=== PATIENT | female | born 1940 | race Caucasian/White ===

== ENCOUNTER 2018-06-30 20:05 | Emergency (ER) | payer OTHER, MEDICAID ==
[~2018-06-30] VITALS: Ht 152.4 cm; Wt 59.0 kg
[2018-06-30 20:15] VITALS: BP_SYST 147
[2018-06-30] MEDS ORDERED: KETOROLAC TROMETHAMINE 60 MG/2 ML VIAL IM ONE (21:15)
[2018-07-01 00:56] VITALS: BP_SYST 141
== END 2018-07-01 00:56 | disposition home or self-care (01) ==
LOC: SED 20:05
DX: S70.01XA Contusion of right hip, initial encounter (principal); K21.9 Gastro-esophageal reflux disease without esophagitis; E11.9 Type 2 diabetes mellitus without complications; I10 Essential (primary) hypertension; Z86.79 Personal history of other diseases of the circulatory system; Z90.710 Acquired absence of both cervix and uterus; Z91.011 Allergy to milk products; V03.99XA Pedestrian with other conveyance injured in collision with car, pick-up truck or van, unspecified whether traffic or nontraffic accident, initial encounter; Y93.89 Activity, other specified; Y92.481 Parking lot as the place of occurrence of the external cause; Y99.8 Other external cause status
CPT/HCPCS: 72192; 96372; 99284; J1885

== ENCOUNTER 2019-06-01 20:06 | Inpatient (IN) | payer OTHER, MEDICAID ==
[~2019-06-01] VITALS: Ht 165.1 cm; Wt 78.9 kg
[2019-06-01 20:33] VITALS: BP_SYST 135
[2019-06-01] MEDS ORDERED: ASPIRIN 81 MG TAB.CHEW PO ONE (20:45)
--- NOTE | 2019-06-01 21:05 | NUR ---
Placed in room 4 . Placed on pan puller, blood pressure machine and pulse oximeter. To gown for exam. Side rails up. Report given to Quincy RUIZ.
--- NOTE | 2019-06-01 21:05 | NUR ---
Pt sent from [facility] r/t Tachycardia. Pt placed to gown and school bus monitor. HR 135 upon arrival to ER. 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 Pt denies c/o SOB or C/P. AAOx2 per baseline.
--- NOTE | 2019-06-01 21:10 | NUR ---
# 20 gauge angiocath placed to RAC. Use of asceptic technique. Opsite placed over site. Blood return noted. Blood for lab drawn from site. Flushed with 10 cc of normal saline. No evidence of infiltration noted. Patient tolerated well.
--- NOTE | 2019-06-01 21:11 | NUR ---
X-ray at bedside.
[2019-06-01] MEDS ORDERED: DILTIAZEM HCL 25 MG/5 ML VIAL IVP ONE (21:30)
[2019-06-01 21:34] LABS: BASOPHILS # (AUTO) 0.1 K/uL (0.0-0.2); BASOPHILS % (AUTO) 0.5 % (0.0-2.0); EOSINOPHILS # (AUTO) 0.2 K/uL (0.0-0.4); EOSINOPHILS % (AUTO) 1.4 % (0.0-4.0); HEMATOCRIT 34.3 % (36-48); HEMOGLOBIN 11.5 g/dL (12.0-16.0); LYMPHOCYTES # (AUTO) 3.8 K/uL (1.0-5.5); LYMPHOCYTES % (AUTO) 30.3 % (20.5-51.5); MEAN CORPUSCULAR HEMOGLOBIN 29 pg (27-31); MEAN CORPUSCULAR HGB CONC 34 % (32-36); MEAN CORPUSCULAR VOLUME 88 fL (79.0-98.0); MONOCYTES # (AUTO) 0.9 K/uL (0.0-1.0); MONOCYTES % (AUTO) 7.2 % (1.7-9.3); NEUTROPHILS # (AUTO) 7.7 K/uL (1.8-7.7); NEUTROPHILS % (AUTO) 60.6 % (40.0-70.0); PLATELET COUNT (AUTO) 331 K/uL (130-430); RED BLOOD CELL COUNT(AUTO) 3.92 MIL/uL (4.2-6.2); WHITE BLOOD COUNT (AUTO) 12.7 K/uL (4.8-10.8)
--- NOTE | 2019-06-01 21:39 | NUR ---
HR 113, B/P 128/76. Cardizem 20 mg given SIVP. Pt denies c/o C/P or SOB.
--- NOTE | 2019-06-01 21:44 | NUR ---
HR 70, B/P 110/88. Denies c/o C/P or SOB. Dr. Wright notified of V/S and pt status.
[2019-06-01 21:50] LABS: ANION GAP 7 (5-15); CALCIUM 8.9 mg/dL (8.4-11.0); CHLORIDE 97 mmol/L (98-107); CREATININE 0.96 mg/dL (0.55-1.30); GLUCOSE 257 mg/dL (70-99); POTASSIUM 5.3 mmol/L (3.5-5.1); SODIUM SERUM 130 mmol/L (136-145); UREA NITROGEN, BLOOD 13 mg/dL (8-21)
[2019-06-01 21:57] LABS: ALANINE AMINOTRANSFERASE 23 U/L (12-78); ALBUMIN 3.3 g/dL (3.4-4.8); ASPARTATE AMINOTRANSFERASE 16 U/L (10-37); TOTAL BILIRUBIN 0.3 mg/dL (0.0-1.0)
[2019-06-01] MEDS ORDERED: NACL 0.9% 1,000 ML IV ONE ×2 (22:00→22:45)
[2019-06-01] MEDS ORDERED: LORA10TA7 PO (22:45)
[2019-06-01] MEDS ORDERED: SSREG SUBCUT (22:45)
[2019-06-01] MEDS ORDERED: cefTRIAXone 1 GM IVPB PREMIX 50 ML IV ONE (22:45)
[2019-06-01] MEDS ORDERED: GLU850 PO (22:45)
[2019-06-01] MEDS ORDERED: GLIM2TAB2 PO (22:45)
[2019-06-01] MEDS ORDERED: DOCU250C14 PO (22:45)
[2019-06-01] MEDS ORDERED: ALBMDI INH (22:45)
[2019-06-01] MEDS ORDERED: ESOM20CA38 PO (22:45)
[2019-06-01] MEDS ORDERED: DICY10CA13 PO (22:45)
[2019-06-01] MEDS ORDERED: TOPXL100 PO (22:45)
[2019-06-01] MEDS ORDERED: INSNLG7030 SUBCUT ×2 (22:45)
[2019-06-01] MEDS ORDERED: GABA-529 PO (22:45)
[2019-06-01] MEDS ORDERED: ACET325T53 PO (22:45)
[2019-06-01] MEDS ORDERED: RIVA10TA PO (22:45)
[2019-06-01] MEDS ORDERED: AMLO5TAB4 PO (22:45)
[2019-06-01] MEDS ORDERED: CAT.1 PO (22:45)
[2019-06-01] MEDS ORDERED: PROMETHAZINE PO (22:45)
[2019-06-01] MEDS ORDERED: LISI-600 PO (22:45)
--- NOTE | 2019-06-01 22:46 | NUR ---
Medication reconciliation completed with information provided by [facility]. Any prior medication reconciliation on file was reviewed and corrected.
[2019-06-01] MEDS ORDERED: IPRATROPIUM/ALBUTEROL SULFATE 3 ML AMPUL.NEB (DUONEB) INH PRN (23:00)
--- NOTE | 2019-06-01 23:15 | NUR ---
Blood Cx X 2 and Lactic Acid drawn prior to administration of antibiotics.
--- NOTE | 2019-06-01 23:45 | NUR ---
ADMISSION NOTE Received patient from ER via gurney. Patient admitted with diagnosis of Tachycardia, Pleural Effusion. Patient is awake, alert, oriented X 2. Patient oriented to hospital room, call light, toileting, pain management and safety-teach back done. Patient informed that JOSEPH Rouse will be primary nurse and that their room number is 132c. Personal belongings checked and Belongings List documented. Call light within reach.
--- NOTE | 2019-06-01 23:50 | NUR ---
Patient will be admitted to care of Dr. Morrison. Admitted to Tele unit. Will go to room 132C. Belongings list completed. Summary report printed. Report will be given at bedside.
[2019-06-02] VITALS (9 sets, daily range): BP systolic 128–157
--- NOTE | 2019-06-02 00:50 | NUR ---
Assessment Patient assessment completed. Patient is awake, AOx2. No distress and denies pain or SOB. Pant was removed and provided with new gown. Bed is locked to lowest position, side rails up 3x and instructed on use of call light.
[2019-06-02] MEDS: PIPERACILLIN/TAZOBACTAM 2.25 GM in NS 50 ML IV SCH ×4 (00:58→17:09)
[2019-06-02] MEDS ORDERED: PIPERACILLIN/TAZOBACTAM 2.25 GM VIAL IV ONE (01:08)
--- NOTE | 2019-06-02 01:49 | NUR ---
Lab Draw Configuration Consultant at bedside for second lactic acid.
--- NOTE | 2019-06-02 03:20 | NUR ---
Heart rate increased fish roe technician reported patient's heart rate increased to 141. Patient denies chest pain or SOB. She reported that she wanted another pillow. She was positioned for comfort. Will monitor.
--- NOTE | 2019-06-02 05:36 | NUR ---
Paged and spoke to Dr. Morrison regarding heart rate in 130's - 140-s. He ordered a consult with Dr. Martin.
--- NOTE | 2019-06-02 05:53 | NUR ---
Antibiotic Due antibiotic, Zosyn IVPB, administered. Infusing and patient tolerating. Presently denies chest pain or SOB.
--- NOTE | 2019-06-02 06:10 | NUR ---
CONSULT: CONSULT CALLED FOR DR. HUNG I SPOKE WITH ANDRA DANIELS REASON FOR CONSULT: A FIB WITH [facility] REQUESTING CONSULT: BOX PERSON PHONE NUMBER: [phone]
--- NOTE | 2019-06-02 06:57 | NUR ---
Closing Note Patient is resting with eyes closed. No distress and nonlabored breathing on room air. Safety precautions maintained. Will endorse care to day shift nurse.
--- NOTE | 2019-06-02 08:00 | NUR ---
Note Pt assisted to sit up in bed to eat breakfast. No SOB/resp distress or pain/discomfort noted at this time. Tele unit attached and intact at this time. IV in right AC intact and patent. No needs noted at this time. Call light within reach.
--- NOTE | 2019-06-02 08:50 | NUR ---
Note Dr Morrison on the floor to assess pt at this time. Requested MD to reconcile medications and informed MD of pt's high pressure.
--- NOTE | 2019-06-02 09:15 | NUR ---
Note Dr Thrasher on the floor to assess pt and orders written and carried out at this time.
[2019-06-02] MEDS ORDERED: LORATADINE 10 MG TABLET PO PRN (09:30)
[2019-06-02] MEDS ORDERED: cloNIDine HCL 0.1 MG TABLET PO SCH (09:30)
[2019-06-02] MEDS ORDERED: RIVAROXABAN 10 MG TABLET PO SCH (09:30)
[2019-06-02] MEDS ORDERED: ACETAMINOPHEN 325 MG TABLET PO PRN (09:30)
[2019-06-02] MEDS ORDERED: DEXTROSE 50% JECT 50 ML DISP.SYRIN IVP PRN (09:30)
[2019-06-02] MEDS ORDERED: amLODIPine BESYLATE 5 MG TABLET PO ONE (09:45)
--- NOTE | 2019-06-02 09:45 | NUR ---
Note Pt already ate breakfast. Addendum: 06/02/19 at 1107 by Jami Christensen RN Blood sugar will be taken at noon.
[2019-06-02] MEDS ORDERED: DILTIAZEM HCL 25 MG/5 ML VIAL IVP PRN (10:00)
[2019-06-02] MEDS ORDERED: cloNIDine HCL 0.1 MG TABLET PO PRN (10:15)
[2019-06-02] MEDS ORDERED: LISINOPRIL 20 MG TABLET PO ONE (10:15)
--- NOTE | 2019-06-02 10:17 | NUR ---
Nutrition Update Tyler Scale 17 noted. Pt admitted for tachycardia, pleural effusion. Diet: CCHO, cardiac BMI: 29.5 kg/m2 RD to follow per nutrition care standards.
--- NOTE | 2019-06-02 10:20 | NUR ---
Note Pt having 2D-echo done at bedside.
[2019-06-02] MEDS ORDERED: RIVAROXABAN 10 MG TABLET PO ONE (10:45)
[2019-06-02] MEDS ORDERED: METO100T14 PO (10:53)
--- NOTE | 2019-06-02 11:10 | NUR ---
Note Pt resting in bed. Denies any needs at this time. Pt next to nurses' station for close observation for needs and care all shift. Call light within reach.
[2019-06-02] MEDS ORDERED: METOPROLOL TARTRATE 50 MG TABLET PO ONE (11:15)
[2019-06-02] MEDS: INSULIN REGULAR, HUMAN 100 UNITS/ML, 10 ML VIAL (humuLIN R) SUBCUT PRN ×2 (11:49→17:19)
--- NOTE | 2019-06-02 13:50 | NUR ---
Note Pt's heart rate is 94-96 at this time. Xarelto 20mg was given at 1126am.
--- NOTE | 2019-06-02 14:55 | NUR ---
Note Pt resting in bed talking to her daughter on the cellphone at this time. Pt denies any needs at this time. Call light within reach and pt next to nurses' station for close observation at this time.
[2019-06-02] MEDS: GABAPENTIN 100 MG CAPSULE PO SCH ×2 (16:01→20:44)
[2019-06-02] MEDS: GLIMEPIRIDE 2 MG TABLET PO SCH (16:01)
--- NOTE | 2019-06-02 18:25 | NUR ---
Note Pt was checked on q1' and PRN all shift for needs and care. Pt next to nurses' station for close observation. No SOB/resp distress or pain/discomfort noted at this time. IV in right AC intact and patent. Tele unit attached and intact all shift. No needs noted at this time. Pt sitting up in bed eating her dinner. Call light within reach.
--- NOTE | 2019-06-02 19:31 | NUR ---
Initial Notes Received handoff report from offgoing nurse. Patient is awake and alert, resting comfortably in bed. No SOB, no acute distress, no complaints of pain at this time. IV site is intact, dressing clean and dry, saline locked. Bed is locked, in the lowest position, 2x side rails up, bed alarm is on. Call light is within reach. Will continue with plan of care.
[2019-06-02] MEDS: DOCUSATE SODIUM 250 MG CAPSULE PO SCH (20:44)
[2019-06-02] MEDS: LISINOPRIL 20 MG TABLET PO SCH (20:44)
[2019-06-02] MEDS: METOPROLOL TARTRATE 50 MG TABLET PO SCH (20:45)
--- NOTE | 2019-06-02 21:00 | NUR ---
Patient is awake and alert, resting comfortably in bed. No SOB, no acute distress, no complaints of pain. Bed is locked, in the lowest position, 2x side rails up, bed alarm is on. Call light is within reach. Encouraged to call.
--- NOTE | 2019-06-02 23:00 | NUR ---
Patient states that she is cold. Provided patient with warm blankets per patient request. Encouraged patient to call for assistance.
[2019-06-03] MEDS: PIPERACILLIN/TAZOBACTAM 2.25 GM in NS 50 ML IV SCH ×4 (00:41→17:48)
[2019-06-03] MEDS: INSULIN REGULAR, HUMAN 100 UNITS/ML, 10 ML VIAL (humuLIN R) SUBCUT PRN ×4 (00:44→16:32)
[2019-06-03 00:45] VITALS: BP_SYST 155
--- NOTE | 2019-06-03 01:01 | NUR ---
Patient resting comfortably in bed, eyes closed. Breathing even and unlabored with visible chest rise and fall noted. Easily arousable to touch. NO SOB, no acute distress, no complaints of pain at this time. IV site intact, dressing clean and dry, currently infusing iv antibiotics per MD order, see eMAR. Bed is locked, in the lowest position, 2x side rails up, bed alarm is on. Call light is within reach. Encouraged patient to call for assistance.
--- NOTE | 2019-06-03 03:00 | NUR ---
Patient resting comfortably in bed, eyes closed. Breathing even and unlabored with visible chest rise and fall noted. NO SOB, no acute distress, no signs of pain or facial grimacing noted. IV site intact, dressing clean and dry, saline locked. Bed is locked, in the lowest position, 2x side rails up, bed alarm is on. call light is within reach.
[2019-06-03 06:17] LABS: ALANINE AMINOTRANSFERASE 15 U/L (12-78); ANION GAP 9 (5-15); ASPARTATE AMINOTRANSFERASE 14 U/L (10-37); CALCIUM 8.7 mg/dL (8.4-11.0); CHLORIDE 102 mmol/L (98-107); CREATININE 0.84 mg/dL (0.55-1.30); GLUCOSE 186 mg/dL (70-99); POTASSIUM 4.5 mmol/L (3.5-5.1); SODIUM SERUM 136 mmol/L (136-145); TOTAL BILIRUBIN 0.2 mg/dL (0.0-1.0); UREA NITROGEN, BLOOD 15 mg/dL (8-21)
[2019-06-03] MEDS: GLIMEPIRIDE 2 MG TABLET PO SCH ×2 (06:28→16:05)
[2019-06-03 07:15] LABS: BASOPHILS # (AUTO) 0.1 K/uL (0.0-0.2); BASOPHILS % (AUTO) 0.7 % (0.0-2.0); EOSINOPHILS # (AUTO) 0.2 K/uL (0.0-0.4); EOSINOPHILS % (AUTO) 1.5 % (0.0-4.0); HEMATOCRIT 37.2 % (36-48); HEMOGLOBIN 12.2 g/dL (12.0-16.0); LYMPHOCYTES # (AUTO) 3.4 K/uL (1.0-5.5); LYMPHOCYTES % (AUTO) 32.6 % (20.5-51.5); MEAN CORPUSCULAR HEMOGLOBIN 29 pg (27-31); MEAN CORPUSCULAR HGB CONC 33 % (32-36); MEAN CORPUSCULAR VOLUME 88 fL (79.0-98.0); MONOCYTES # (AUTO) 0.9 K/uL (0.0-1.0); MONOCYTES % (AUTO) 8.3 % (1.7-9.3); NEUTROPHILS % (AUTO) 56.9 % (40.0-70.0); PLATELET COUNT (AUTO) 315 K/uL (130-430); RED BLOOD CELL COUNT(AUTO) 4.21 MIL/uL (4.2-6.2); WHITE BLOOD COUNT (AUTO) 10.5 K/uL (4.8-10.8)
--- NOTE | 2019-06-03 07:34 | NUR ---
Closing Notes Handoff report given to oncoming dayshift nurse at the bedside. Patient resting comfortably in bed with eyes closed. No SOB, no acute distress, no complaints of pain at this time. Bed is locked, in the lowest position, 2x side rails up, bed alarm is on. Call light within reach. Fall and safety precautions maintained. All needs have been met during this shift.
[2019-06-03 08:00] VITALS: BP_SYST 160
--- NOTE | 2019-06-03 08:00 | NUR ---
Note Pt assisted in sitting up in bed to eat breakfast. No SOB/resp distress or pain/discomfort noted at this time. IV in right AC intact and patent at this time. Tele unit attached and intact at this time. No needs noted at this time. Call light within reach.
--- NOTE | 2019-06-03 08:05 | NUR ---
Note Dr Thrasher on the floor doing assessment and checking labs/tests drawn previously.
[2019-06-03] MEDS: DOCUSATE SODIUM 250 MG CAPSULE PO SCH ×2 (08:50→21:20)
[2019-06-03] MEDS: LISINOPRIL 20 MG TABLET PO SCH ×2 (08:51→21:21)
[2019-06-03] MEDS: GABAPENTIN 100 MG CAPSULE PO SCH ×3 (08:52→21:21)
[2019-06-03] MEDS: RIVAROXABAN 20 MG TABLET PO SCH (08:52)
[2019-06-03] MEDS: amLODIPine BESYLATE 5 MG TABLET PO SCH (08:53)
[2019-06-03] MEDS: METOPROLOL TARTRATE 50 MG TABLET PO SCH ×2 (08:53→21:22)
[2019-06-03 11:24] VITALS: BP_SYST 130
--- NOTE | 2019-06-03 12:00 | NUR ---
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 No new orders given at this time.
--- NOTE | 2019-06-03 12:00 | NUR ---
Note Pt was moved from room 132C to room 122A for contact isolation precautions. No needs noted at this time. Call light within reach. Pt next to nurses' station for close observation for needs and care. Call light within reach.
[2019-06-03 15:15] VITALS: BP_SYST 128
--- NOTE | 2019-06-03 15:15 | NUR ---
Note Pt resting in bed watching television - denies any needs at this time. Pt next to nurses' station for close observation for needs and care. Call light within reach.
--- NOTE | 2019-06-03 18:45 | NUR ---
Note Pt assisted in sitting up in bed to eat her dinner. No SOB/resp distress or pain/discomfort noted at this time. Pt's tele unit attached and intact all shift. Pt was checked on q1' and PRN all shift for needs and care. IV in right AC intact and patent at this time. Call light within reach.
--- NOTE | 2019-06-03 19:30 | NUR ---
Initial Notes Received handoff report from off going nurse at the bedside. Patient is awake and alert, resting comfortably in bed. NO SOB, no acute distress, no complaints of pain at this time. IV site intact, dressing clean and dry, saline locked. Bed is locked, in the lowest position, 2x side rails up, bed alarm is on. Call light is within reach. Encouraged patient to call for assistance. Will continue with plan of care. Addendum: 06/04/19 at 0134 by Carine Ospina RN Continuation of Notes Noted patient is now on contact isolation precautions for positive MRSA.
[2019-06-03 20:00] VITALS: BP_SYST 130
[2019-06-03] MEDS: DILTIAZEM HCL 25 MG/5 ML VIAL IVP PRN (21:42)
[2019-06-03 21:50] VITALS: BP_SYST 113
--- NOTE | 2019-06-03 21:50 | NUR ---
Noted patient with HR 140s, uncontrolled AFIB. Cardizem given at 2142 per MD order for elevated HR, see eMAR. Vital signs retaken at 2150. BP 113/72, HR 71. Stable. Will continue to monitor closely.
--- NOTE | 2019-06-04 00:10 | NUR ---
Endorsement of Care Handoff report given to CARMELO at the bedside. Patient is resting comfortably in bed with eyes closed. Breathing even and unlabored with visible chest rise and fall noted at this time. Bed is locked, in the lowest position, 2x side rails up, bed alarm is on. Call light is within reach. All needs have been met at this time. Addendum: 06/04/19 at 6642 by Carine Ospina RN Continuation of Notes Also endorsed to follow up with influenza vaccination status by calling the daughter Pearl at [phone], or from [facility].
[2019-06-04] MEDS: PIPERACILLIN/TAZOBACTAM 2.25 GM in NS 50 ML IV SCH ×4 (00:11→17:33)
--- NOTE | 2019-06-04 00:15 | NUR ---
NOTES RECEIVED PATIENT RESTING COMFORTABLY IN BED, VITALS STABLE, NO PAIN AND DISCOMFORT NOTED AT THIS TIME. NEEDS ATTENDED TO. WILL CONTINUE TO MONITOR.
[2019-06-04] MEDS: INSULIN REGULAR, HUMAN 100 UNITS/ML, 10 ML VIAL (humuLIN R) SUBCUT PRN ×3 (00:18→11:37)
[2019-06-04 01:10] VITALS: BP_SYST 110
--- NOTE | 2019-06-04 02:14 | NUR ---
ROUNDS PATIENT ASLEEP, RESPIRATIONS EVEN AND UNLABORED, WILL CONTINUE TO MONITOR.
--- NOTE | 2019-06-04 04:13 | NUR ---
ROUNDS PATIENT ASLEEP, RESPIRATIONS EVEN AND UNLABORED, WILL CONTINUE TO MONITOR.
[2019-06-04] MEDS: GLIMEPIRIDE 2 MG TABLET PO SCH ×2 (06:16→17:36)
--- NOTE | 2019-06-04 06:37 | NUR ---
CLOSING NOTES PATIENT AWAKE, VITALS STABLE, NO PAIN AT THIS TIME. ACCU CHECK DONE, BLOOD SUGAR 173 WITH 2 UNITS REGULAR INSULIN GIVEN SUBCU FOR COVERAGE. ALL NEEDS ATTENDED TO. CALL LIGHT PLACED WITHIN REACH.
--- NOTE | 2019-06-04 08:00 | NUR ---
ASSUMPTION OF CARE: RECEIVED PT A/A/OX3, DX: DECREASED CARDIAC OUTPUT, R/T TACHYCARDIA, PLEURAL EFFUSION, VS WNL, NO S/S OF DISTRESS, NO C/O PAIN, BREATH SOUNDS ARE CLEAR, BREATHING UNLABORED, IV SITE INTACT, PATENT, NO REDNESS OR SWELLING, PULSES PALPABLE, ORIENTED TO UNIT, CALL LIGHT PLACED WITHIN REACH, WILL CONT' TO MONITOR AND ASSESS.
[2019-06-04 08:26] VITALS: BP_SYST 139
[2019-06-04] MEDS: GABAPENTIN 100 MG CAPSULE PO SCH ×3 (08:38→20:40)
[2019-06-04] MEDS: amLODIPine BESYLATE 5 MG TABLET PO SCH (08:40)
[2019-06-04] MEDS: METOPROLOL TARTRATE 50 MG TABLET PO SCH ×2 (08:40→20:40)
[2019-06-04] MEDS: LISINOPRIL 20 MG TABLET PO SCH ×2 (08:41→20:40)
[2019-06-04] MEDS: DOCUSATE SODIUM 250 MG CAPSULE PO SCH ×2 (08:42→20:40)
[2019-06-04] MEDS: RIVAROXABAN 20 MG TABLET PO SCH (08:49)
--- NOTE | 2019-06-04 09:00 | NUR ---
TOOL TENDER: MORNING MEDS GIVEN, PER ORDERED BY Duglas, TOLERATED WELL, WILL CONT' WITH POC.
--- NOTE | 2019-06-04 11:30 | NUR ---
GLUCOSE MONITORING: BLOOD SUGAR [id number], COVERED WITH 2 UNITS REGULAR INSULIN, GIVEN SQ, TOLERATED WELL, PT EATING WELL, WILL CONT' TO MONITOR, WILL CONT' WITH POC.
[2019-06-04 12:23] VITALS: BP_SYST 150
--- NOTE | 2019-06-04 15:00 | NUR ---
NURSES NOTES: PT REMAINS STABLE, NO S/S OF DISTRESS, SR-ST ON TELEMONITOR, LOW 100'S, ASYMPTOMATIC, NO C/O PAIN, CALLLIGHT PLACED WITHIN REACH, WILL CONT' TO MONITOR AND ASSESS.
[2019-06-04 16:34] VITALS: BP_SYST 141
--- NOTE | 2019-06-04 17:30 | NUR ---
GLUCOSE MONITORING: BLOOD SUGAR [id number], COVERED WITH 2 UNITS REGULAR INSULIN, GIVEN SQ, TOLERATED WELL, WILL CONT' TO MONITOR, WILL CONT' WITH POC.
[2019-06-04] MEDS: DILTIAZEM HCL 25 MG/5 ML VIAL IVP PRN (18:05)
--- NOTE | 2019-06-04 18:05 | NUR ---
TACHYCARDIA: PT HAS A-FIB UNCONTROLLED, 150'S SUSTAINED, CARDIZEM IVP GIVEN, TOLERATED WELL, WILL CONT' TO MONITOR, WILL CONT' WITH POC.
--- NOTE | 2019-06-04 19:25 | NUR ---
initial notes: pt is awake, alert, oriented x 3.on bed. no pain. stable. not distress. ivf running to right ac gauge 22- intact and patent. no sign of infiltration. pt is incontinent of urine, clean by power barker operator. contact isolation for mrsa of nares. discuss to pt plan of care, encourage to use call for assistance, call light is with the pt. pt verbalized understanding. needs attended. safety on.side rails up. low bed position.bed alarm, maintained isolation. will follow-up.
[2019-06-04 20:34] VITALS: BP_SYST 122
--- NOTE | 2019-06-04 22:00 | NUR ---
sleeping on her stable, no sob. call light in reach. will monitor.
--- NOTE | 2019-06-05 | NUR ---
sleeping, stable, no pain, no sob. maintained on isolation. safety will monitor.
[2019-06-05] MEDS: PIPERACILLIN/TAZOBACTAM 2.25 GM in NS 50 ML IV SCH ×2 (00:38→06:40)
[2019-06-05] MEDS: INSULIN REGULAR, HUMAN 100 UNITS/ML, 10 ML VIAL (humuLIN R) SUBCUT PRN ×2 (00:42→06:44)
[2019-06-05 01:24] VITALS: BP_SYST 130
--- NOTE | 2019-06-05 02:00 | NUR ---
resting, comfortable. no distress, no breathing problem. stable. call light in reach. will monitor.
--- NOTE | 2019-06-05 04:23 | NUR ---
sleeping on her side, comfortable. no pain, non labored breathing. stable. contact isolation. call light in reach, bed alarm on. will monitor.
--- NOTE | 2019-06-05 06:00 | NUR ---
resting, comfortable. no distress, no breathing problem. stable. iv lock intact. call light in reach. will monitor.
[2019-06-05] MEDS: GLIMEPIRIDE 2 MG TABLET PO SCH (06:42)
--- NOTE | 2019-06-05 07:28 | NUR ---
closing: pt is awake, alert, oriented. no pain, no distress, iv lock intact and patent. needs attended the whole shift. bedside report given to am rn.
[2019-06-05 08:00] VITALS: BP_SYST 127
[2019-06-05] MEDS: DOCUSATE SODIUM 250 MG CAPSULE PO SCH (08:39)
[2019-06-05] MEDS: METOPROLOL TARTRATE 50 MG TABLET PO SCH (08:40)
[2019-06-05] MEDS: LISINOPRIL 20 MG TABLET PO SCH (08:41)
[2019-06-05] MEDS: amLODIPine BESYLATE 5 MG TABLET PO SCH (08:41)
[2019-06-05] MEDS: GABAPENTIN 100 MG CAPSULE PO SCH (08:41)
[2019-06-05] MEDS: RIVAROXABAN 20 MG TABLET PO SCH (08:49)
[2019-06-05 11:43] VITALS: BP_SYST 127
[2019-06-05 12:00] VITALS: BP_SYST 133
--- NOTE | 2019-06-05 12:20 | NUR ---
pt xiomaralock dc'd, monitor removed, discharge instructions given to patient and van to [facility] arrived to picking machine operator helper pt and return her to home at facility. pt left per w/c , alert and oriented x 3 with no distress noted instructions given to pt and signature obtained. , with no acute distress noted.
--- NOTE | 2019-06-16 15:50 | NUR ---
DISCHARGE FOLLOW UP PHONE CALL CM/ CHRISTOPH YOON PHONED PATIENT, . WAS UNABLE TO REACH PATIENT. LEFT MESSAGE WITH FLAT GRINDER OPERATOR. 1ST ATTEMPT MADE.
== END 2019-06-05 12:20 | disposition home or self-care (01) | DRG 308 ==
LOC: SED 20:06 → STU 23:00
PROVIDERS: ADMIT Internal Medicine Hospice and Palliative Medicine; ATTEND Internal Medicine Hospice and Palliative Medicine
DX: I48.91 Unspecified atrial fibrillation (principal); J18.9 Pneumonia, unspecified organism; E44.1 Mild protein-calorie malnutrition; E11.9 Type 2 diabetes mellitus without complications; E66.9 Obesity, unspecified; I10 Essential (primary) hypertension; Z79.4 Long term (current) use of insulin; Z68.29 Body mass index [BMI] 29.0-29.9, adult; Z79.899 Other long term (current) drug therapy; Z88.8 Allergy status to other drugs, medicaments and biological substances
CPT/HCPCS: 36415; 71045; 80053; 82550-TC; 82962; 83605; 83880; 84484; 85025; 87040-TC; 87081; 93005; 93306; 96361; 96365; 99285; G0378; J0696; J2543; J3490; J7030

== ENCOUNTER 2021-04-08 13:41 | Inpatient (IN) | payer OTHER, MEDICAID, SELFPAY ==
[~2021-04-08] VITALS: Ht 154.9 cm; Wt 61.4 kg
[~2021-04-08 13:41] MED LIST: ACET325T53 PO; ALBMDI INH; AMLO5TAB4 PO; DICY10CA13 PO; DOCU250C14 PO; ESOM20CA38 PO; GABA-529 PO; GLIM2TAB PO; GLU850 PO; INSNLG7030 SUBCUT; LISI20TA30 PO; LORA10TA7 PO; METO100T14 PO; PROMETHAZINE PO; RIVA10TA PO; SSREG SUBCUT
[2021-04-08 13:50] VITALS: BP_SYST 144
[2021-04-08 15:48] LABS: BASOPHILS % (AUTO) 0.3 % (0.0-2.0); EOSINOPHILS % (AUTO) 0.4 % (0.0-4.0); HEMATOCRIT 36.6 % (36-48); HEMOGLOBIN 12.8 g/dL (12.0-16.0); LYMPHOCYTES # (AUTO) 2.1 K/uL (1.0-5.5); LYMPHOCYTES % (AUTO) 16.5 % (20.5-51.5); MEAN CORPUSCULAR HEMOGLOBIN 28 pg (27-31); MEAN CORPUSCULAR HGB CONC 35 % (32-36); MEAN CORPUSCULAR VOLUME 81 fL (79.0-98.0); MONOCYTES # (AUTO) 0.6 K/uL (0.0-1.0); NEUTROPHILS % (AUTO) 77.8 % (40.0-70.0); PLATELET COUNT (AUTO) 323 K/uL (130-430); RED CELL DISTRIBUTION WIDTH 15.2 % (9.0-15.0); WHITE BLOOD COUNT (AUTO) 12.9 K/uL (4.8-10.8)
[2021-04-08 15:52] LABS: BILIRUBIN,URINE NEGATIVE (NEGATIVE); CLARITY/URINE SL CLOUDY (CLEAR); COLOR,URINE YELLOW (YELLOW); GLUCOSE,URINE 3+ (NEGATIVE); KETONES,URINE NEGATIVE (NEGATIVE); LEUKOCYTE ESTERASE ,URINE TRACE (NEGATIVE); NITRITE, URINE NEGATIVE (NEGATIVE); PH,URINE 5.5 (5.0-8.0); PROTEIN URINE 2+ (NEGATIVE); UROBILINOGEN,URINE 0.2 (0.2-1.0)
[2021-04-08 16:00] LABS: BLOOD, URINE TRACE (NEGATIVE)
[2021-04-08 16:00] LABS: ANION GAP 10 (5-15); CREATININE 0.71 mg/dL (0.55-1.30); GLUCOSE 232 mg/dL (70-99); POTASSIUM 4.3 mmol/L (3.5-5.1); UREA NITROGEN, BLOOD 8 mg/dL (8-21)
[2021-04-08 16:02] LABS: BACTERIA,URINE MANY /HPF (None Seen); RBC,URINE 0-3 /HPF (0-3)
[2021-04-08 16:14] LABS: ALANINE AMINOTRANSFERASE 25 U/L (12-78); ALBUMIN 3.8 g/dL (3.4-4.8); ASPARTATE AMINOTRANSFERASE 14 U/L (10-37); LIPASE 91 U/L (73-393); TOTAL BILIRUBIN 0.4 mg/dL (0.0-1.0)
[2021-04-08 16:16] LABS: SODIUM SERUM 116 mmol/L (136-145)
[2021-04-08 16:17] LABS: CHLORIDE 79 mmol/L (98-107)
[2021-04-08] MEDS ORDERED: ONDANSETRON HCL 4 MG/2 ML VIAL IVP ONE (16:45)
[2021-04-08] MEDS ORDERED: NACL 0.9% 1,000 ML IV ONE (16:45)
[2021-04-08] MEDS ORDERED: cefTRIAXone 1 GM IVPB PREMIX 50 ML IV ONE (17:00)
[2021-04-08] MEDS: D5NS 1,000 ML IV SCH (18:53)
[2021-04-08] MEDS ORDERED: DIGO125T PO (19:12)
[2021-04-08 21:45] VITALS: BP_SYST 125
[2021-04-08] MEDS ORDERED: LORATADINE 10 MG TABLET PO PRN (22:00)
[2021-04-08] MEDS ORDERED: NALOXONE HCL 0.4 MG/ML AMP (NARCAN) IVP PRN ×2 (22:00)
[2021-04-08] MEDS ORDERED: HYDROcodone/ACETAMIN 5-325 MG TAB (NORCO/ VICODIN) PO PRN (22:00)
[2021-04-08] MEDS ORDERED: ACETAMINOPHEN 325 MG TABLET PO SCH (22:00)
[2021-04-08] MEDS ORDERED: LORazepam 2 MG/ML VIAL IVP PRN (22:00)
[2021-04-08] MEDS ORDERED: HYDROcodone/ACETAMIN 10-325 MG TAB PO PRN (22:00)
[2021-04-08] MEDS ORDERED: ACETAMINOPHEN 325 MG TABLET PO PRN (22:00)
[2021-04-08] MEDS ORDERED: ONDANSETRON HCL 4 MG/2 ML VIAL IVP PRN (22:00)
[2021-04-08 22:24] VITALS: BP_SYST 125
[2021-04-09 00:25] VITALS: BP_SYST 118
[2021-04-09] MEDS: D5NS 1,000 ML IV SCH ×2 (03:14→13:15)
[2021-04-09] MEDS: INSULIN REGULAR, HUMAN 100 UNITS/ML, 10 ML VIAL (humuLIN R) SUBCUT PRN ×4 (06:04→21:26)
[2021-04-09 06:43] LABS: BASOPHILS % (AUTO) 0.3 % (0.0-2.0); EOSINOPHILS # (AUTO) 0.1 K/uL (0.0-0.4); EOSINOPHILS % (AUTO) 0.7 % (0.0-4.0); HEMATOCRIT 31.1 % (36-48); LYMPHOCYTES # (AUTO) 2.4 K/uL (1.0-5.5); LYMPHOCYTES % (AUTO) 23.3 % (20.5-51.5); MEAN CORPUSCULAR HEMOGLOBIN 29 pg (27-31); MEAN CORPUSCULAR HGB CONC 35 % (32-36); MEAN CORPUSCULAR VOLUME 82 fL (79.0-98.0); MONOCYTES # (AUTO) 0.9 K/uL (0.0-1.0); MONOCYTES % (AUTO) 8.7 % (1.7-9.3); NEUTROPHILS # (AUTO) 6.9 K/uL (1.8-7.7); PLATELET COUNT (AUTO) 252 K/uL (130-430); RED BLOOD CELL COUNT(AUTO) 3.81 MIL/uL (4.2-6.2); RED CELL DISTRIBUTION WIDTH 15.2 % (9.0-15.0); WHITE BLOOD COUNT (AUTO) 10.3 K/uL (4.8-10.8)
[2021-04-09 07:05] LABS: ANION GAP 8 (5-15); CALCIUM 8.2 mg/dL (8.4-11.0); CHLORIDE 92 mmol/L (98-107); CREATININE 0.61 mg/dL (0.55-1.30); GLUCOSE 206 mg/dL (70-99); POTASSIUM 3.8 mmol/L (3.5-5.1); SODIUM SERUM 125 mmol/L (136-145); UREA NITROGEN, BLOOD 8 mg/dL (8-21)
[2021-04-09] MEDS ORDERED: ALBUTEROL SULFATE 0.083% 2.5 MG/3 ML VIAL.NEB INH PRN (07:30)
[2021-04-09] MEDS: PROMETHAZINE HCL 6.25 MG/5 ML UDC PO SCH ×3 (09:13→21:21)
[2021-04-09] MEDS: DOCUSATE SODIUM 250 MG CAPSULE PO SCH ×2 (09:14→21:19)
[2021-04-09] MEDS: DICYCLOMINE HCL 10 MG CAPSULE PO SCH ×3 (09:14→21:19)
[2021-04-09] MEDS: DIGOXIN 0.125 MG TABLET PO SCH (09:14)
[2021-04-09] MEDS: lisinopriL 20 MG TABLET PO SCH ×2 (09:14→21:19)
[2021-04-09] MEDS: GLIMEPIRIDE 2 MG TABLET PO SCH ×2 (09:14→21:20)
[2021-04-09] MEDS: PANTOPRAZOLE SODIUM 40 MG TAB PO SCH (09:14)
[2021-04-09] MEDS: amLODIPine BESYLATE 5 MG TABLET PO SCH (09:15)
[2021-04-09] MEDS: METOPROLOL TARTRATE 50 MG TABLET PO SCH ×2 (09:15→21:19)
[2021-04-09] MEDS: GABAPENTIN 100 MG CAPSULE PO SCH ×3 (09:16→21:19)
[2021-04-09] MEDS: INSULIN NPH/REGULAR 70-30, 100 UNITS/ML, 10 ML VIAL SUBCUT SCH ×2 (09:20→17:51)
[2021-04-09 12:44] VITALS: BP_SYST 118
[2021-04-09 16:32] VITALS: BP_SYST 114
[2021-04-09] MEDS: cefTRIAXone 1 GM IVPB PREMIX 50 ML IV SCH (17:47)
[2021-04-09] MEDS: RIVAROXABAN 10 MG TABLET PO SCH (17:50)
[2021-04-09 20:14] VITALS: BP_SYST 114
[2021-04-10] VITALS: BP_SYST 121
[2021-04-10] MEDS: D5NS 1,000 ML IV SCH ×3 (00:26→12:11)
[2021-04-10] MEDS: INSULIN REGULAR, HUMAN 100 UNITS/ML, 10 ML VIAL (humuLIN R) SUBCUT PRN ×4 (06:15→23:58)
[2021-04-10 06:59] LABS: BASOPHILS # (AUTO) 0.1 K/uL (0.0-0.2); BASOPHILS % (AUTO) 0.7 % (0.0-2.0); EOSINOPHILS # (AUTO) 0.1 K/uL (0.0-0.4); HEMATOCRIT 32.2 % (36-48); LYMPHOCYTES # (AUTO) 2.3 K/uL (1.0-5.5); LYMPHOCYTES % (AUTO) 27.8 % (20.5-51.5); MEAN CORPUSCULAR HEMOGLOBIN 29 pg (27-31); MEAN CORPUSCULAR HGB CONC 34 % (32-36); MEAN CORPUSCULAR VOLUME 84 fL (79.0-98.0); MONOCYTES # (AUTO) 0.7 K/uL (0.0-1.0); MONOCYTES % (AUTO) 7.9 % (1.7-9.3); NEUTROPHILS # (AUTO) 5.3 K/uL (1.8-7.7); NEUTROPHILS % (AUTO) 62.6 % (40.0-70.0); PLATELET COUNT (AUTO) 244 K/uL (130-430); RED BLOOD CELL COUNT(AUTO) 3.86 MIL/uL (4.2-6.2); RED CELL DISTRIBUTION WIDTH 15.4 % (9.0-15.0); WHITE BLOOD COUNT (AUTO) 8.4 K/uL (4.8-10.8)
[2021-04-10 08:00] VITALS: BP_SYST 133
[2021-04-10 08:10] LABS: ALANINE AMINOTRANSFERASE 17 U/L (12-78); ALBUMIN 2.4 g/dL (3.4-4.8); ANION GAP 10 (5-15); ASPARTATE AMINOTRANSFERASE 11 U/L (10-37); C-REACTIVE PROTEIN QUANT 1.3 mg/dL (0-0.5); CHLORIDE 100 mmol/L (98-107); CREATININE 0.66 mg/dL (0.55-1.30); GLUCOSE 225 mg/dL (70-99); PHOSPHORUS 2.3 mg/dL (2.7-4.5); SODIUM SERUM 132 mmol/L (136-145); TOTAL BILIRUBIN 0.2 mg/dL (0.0-1.0); UREA NITROGEN, BLOOD 11 mg/dL (8-21)
[2021-04-10] MEDS: GABAPENTIN 100 MG CAPSULE PO SCH ×3 (08:50→23:42)
[2021-04-10] MEDS: METOPROLOL TARTRATE 50 MG TABLET PO SCH ×2 (08:51→23:48)
[2021-04-10] MEDS: DICYCLOMINE HCL 10 MG CAPSULE PO SCH ×3 (08:51→23:42)
[2021-04-10] MEDS: DOCUSATE SODIUM 250 MG CAPSULE PO SCH ×2 (08:52→23:42)
[2021-04-10] MEDS: DIGOXIN 0.125 MG TABLET PO SCH (08:52)
[2021-04-10] MEDS: PANTOPRAZOLE SODIUM 40 MG TAB PO SCH (08:52)
[2021-04-10] MEDS: lisinopriL 20 MG TABLET PO SCH ×2 (08:52→23:48)
[2021-04-10] MEDS: GLIMEPIRIDE 2 MG TABLET PO SCH (08:53)
[2021-04-10] MEDS: amLODIPine BESYLATE 5 MG TABLET PO SCH (08:53)
[2021-04-10] MEDS: PROMETHAZINE HCL 6.25 MG/5 ML UDC PO SCH ×3 (08:54→23:43)
[2021-04-10] MEDS: INSULIN NPH/REGULAR 70-30, 100 UNITS/ML, 10 ML VIAL SUBCUT SCH ×2 (08:58→18:06)
[2021-04-10 10:02] LABS: ERYTHROCYTE SEDIMENTATION RATE 17 MM/HR (0-20)
[2021-04-10 12:07] VITALS: BP_SYST 151
[2021-04-10 16:04] VITALS: BP_SYST 130
[2021-04-10] MEDS ORDERED: NA PHOS 15 MM in NS 250 ML IV ONE (17:45)
[2021-04-10] MEDS: RIVAROXABAN 10 MG TABLET PO SCH (18:04)
[2021-04-10] MEDS: cefTRIAXone 1 GM IVPB PREMIX 50 ML IV SCH (18:08)
[2021-04-10 20:00] VITALS: BP_SYST 184
[2021-04-11] MEDS: GLIMEPIRIDE 2 MG TABLET PO SCH ×3 (00:01→21:38)
[2021-04-11 01:25] VITALS: BP_SYST 150
[2021-04-11] MEDS: D5NS 1,000 ML IV SCH ×2 (04:34→14:12)
[2021-04-11] MEDS: INSULIN REGULAR, HUMAN 100 UNITS/ML, 10 ML VIAL (humuLIN R) SUBCUT PRN ×3 (06:00→22:17)
[2021-04-11 06:53] LABS: BASOPHILS # (AUTO) 0.1 K/uL (0.0-0.2); BASOPHILS % (AUTO) 0.7 % (0.0-2.0); EOSINOPHILS # (AUTO) 0.2 K/uL (0.0-0.4); EOSINOPHILS % (AUTO) 2.1 % (0.0-4.0); HEMATOCRIT 32.9 % (36-48); HEMOGLOBIN 11.2 g/dL (12.0-16.0); LYMPHOCYTES % (AUTO) 28.8 % (20.5-51.5); MEAN CORPUSCULAR HEMOGLOBIN 29 pg (27-31); MEAN CORPUSCULAR HGB CONC 34 % (32-36); MEAN CORPUSCULAR VOLUME 84 fL (79.0-98.0); MONOCYTES # (AUTO) 0.8 K/uL (0.0-1.0); MONOCYTES % (AUTO) 7.9 % (1.7-9.3); NEUTROPHILS # (AUTO) 6.4 K/uL (1.8-7.7); NEUTROPHILS % (AUTO) 60.5 % (40.0-70.0); PLATELET COUNT (AUTO) 261 K/uL (130-430); RED CELL DISTRIBUTION WIDTH 15.5 % (9.0-15.0); WHITE BLOOD COUNT (AUTO) 10.5 K/uL (4.8-10.8)
[2021-04-11 07:52] LABS: ANION GAP 10 (5-15); C-REACTIVE PROTEIN QUANT 0.9 mg/dL (0-0.5); CALCIUM 8.5 mg/dL (8.4-11.0); CHLORIDE 101 mmol/L (98-107); CREATININE 0.65 mg/dL (0.55-1.30); GLUCOSE 169 mg/dL (70-99); POTASSIUM 3.8 mmol/L (3.5-5.1); SODIUM SERUM 133 mmol/L (136-145); UREA NITROGEN, BLOOD 10 mg/dL (8-21)
[2021-04-11 08:00] VITALS: BP_SYST 145
[2021-04-11] MEDS: PANTOPRAZOLE SODIUM 40 MG TAB PO SCH (09:13)
[2021-04-11] MEDS: GABAPENTIN 100 MG CAPSULE PO SCH ×3 (09:13→21:38)
[2021-04-11] MEDS: DIGOXIN 0.125 MG TABLET PO SCH (09:13)
[2021-04-11] MEDS: DOCUSATE SODIUM 250 MG CAPSULE PO SCH ×2 (09:13→21:38)
[2021-04-11] MEDS: lisinopriL 20 MG TABLET PO SCH ×2 (09:13→21:39)
[2021-04-11] MEDS: METOPROLOL TARTRATE 50 MG TABLET PO SCH ×2 (09:13→21:39)
[2021-04-11] MEDS: DICYCLOMINE HCL 10 MG CAPSULE PO SCH ×3 (09:15→21:38)
[2021-04-11] MEDS: amLODIPine BESYLATE 5 MG TABLET PO SCH (09:15)
[2021-04-11] MEDS: PROMETHAZINE HCL 6.25 MG/5 ML UDC PO SCH ×3 (09:16→21:40)
[2021-04-11 09:17] LABS: ERYTHROCYTE SEDIMENTATION RATE 24 MM/HR (0-20)
[2021-04-11] MEDS: INSULIN NPH/REGULAR 70-30, 100 UNITS/ML, 10 ML VIAL SUBCUT SCH ×2 (09:17→17:22)
[2021-04-11 12:09] VITALS: BP_SYST 158
[2021-04-11] MEDS: ERTAPENEM SODIUM 1 GM in NS 50 ML IV SCH (14:29)
[2021-04-11 16:08] VITALS: BP_SYST 149
[2021-04-11] MEDS: RIVAROXABAN 10 MG TABLET PO SCH (17:23)
[2021-04-11 20:00] VITALS: BP_SYST 162
[2021-04-12] MEDS: D5NS 1,000 ML IV SCH ×3 (01:00→11:07)
[2021-04-12] MEDS: INSULIN REGULAR, HUMAN 100 UNITS/ML, 10 ML VIAL (humuLIN R) SUBCUT PRN ×2 (06:28→11:05)
[2021-04-12 06:54] LABS: ANION GAP 10 (5-15); BASOPHILS # (AUTO) 0.1 K/uL (0.0-0.2); BASOPHILS % (AUTO) 0.6 % (0.0-2.0); CALCIUM 8.7 mg/dL (8.4-11.0); CHLORIDE 99 mmol/L (98-107); CREATININE 0.65 mg/dL (0.55-1.30); EOSINOPHILS # (AUTO) 0.2 K/uL (0.0-0.4); EOSINOPHILS % (AUTO) 1.7 % (0.0-4.0); GLUCOSE 228 mg/dL (70-99); HEMOGLOBIN 12.2 g/dL (12.0-16.0); LYMPHOCYTES # (AUTO) 2.9 K/uL (1.0-5.5); LYMPHOCYTES % (AUTO) 26.6 % (20.5-51.5); MEAN CORPUSCULAR HEMOGLOBIN 29 pg (27-31); MEAN CORPUSCULAR HGB CONC 35 % (32-36); MEAN CORPUSCULAR VOLUME 84 fL (79.0-98.0); MONOCYTES # (AUTO) 0.8 K/uL (0.0-1.0); NEUTROPHILS # (AUTO) 6.9 K/uL (1.8-7.7); NEUTROPHILS % (AUTO) 64.1 % (40.0-70.0); PLATELET COUNT (AUTO) 283 K/uL (130-430); POTASSIUM 4.1 mmol/L (3.5-5.1); RED BLOOD CELL COUNT(AUTO) 4.16 MIL/uL (4.2-6.2); RED CELL DISTRIBUTION WIDTH 15.4 % (9.0-15.0); SODIUM SERUM 134 mmol/L (136-145); UREA NITROGEN, BLOOD 8 mg/dL (8-21); WHITE BLOOD COUNT (AUTO) 10.8 K/uL (4.8-10.8)
[2021-04-12 08:00] VITALS: BP_SYST 148
[2021-04-12 08:10] LABS: ERYTHROCYTE SEDIMENTATION RATE 28 MM/HR (0-20)
[2021-04-12] MEDS: PANTOPRAZOLE SODIUM 40 MG TAB PO SCH (08:25)
[2021-04-12] MEDS: DOCUSATE SODIUM 250 MG CAPSULE PO SCH (08:25)
[2021-04-12] MEDS: lisinopriL 20 MG TABLET PO SCH (08:25)
[2021-04-12] MEDS: METOPROLOL TARTRATE 50 MG TABLET PO SCH (08:26)
[2021-04-12] MEDS: GLIMEPIRIDE 2 MG TABLET PO SCH (08:27)
[2021-04-12] MEDS: GABAPENTIN 100 MG CAPSULE PO SCH ×2 (08:27→14:39)
[2021-04-12] MEDS: amLODIPine BESYLATE 5 MG TABLET PO SCH (08:27)
[2021-04-12] MEDS: DICYCLOMINE HCL 10 MG CAPSULE PO SCH ×2 (08:27→14:34)
[2021-04-12] MEDS: PROMETHAZINE HCL 6.25 MG/5 ML UDC PO SCH ×2 (08:28→14:35)
[2021-04-12] MEDS: DIGOXIN 0.125 MG TABLET PO SCH (08:28)
[2021-04-12] MEDS: INSULIN NPH/REGULAR 70-30, 100 UNITS/ML, 10 ML VIAL SUBCUT SCH ×2 (08:32→17:10)
[2021-04-12 09:18] LABS: C-REACTIVE PROTEIN QUANT 0.8 mg/dL (0-0.5)
[2021-04-12 12:41] VITALS: BP_SYST 132
[2021-04-12] MEDS ORDERED: NITR-85 PO (13:17)
[2021-04-12] MEDS: ERTAPENEM SODIUM 1 GM in NS 50 ML IV SCH (14:35)
[2021-04-12 16:24] VITALS: BP_SYST 133
[2021-04-12] MEDS: RIVAROXABAN 10 MG TABLET PO SCH (17:08)
[2021-04-12 17:58] VITALS: BP_SYST 133
== END 2021-04-12 20:00 | DRG 871 ==
LOC: SED 13:41 → SMU 16:55
PROVIDERS: ADMIT Preventive Medicine Preventive Medicine/Occupational Environmental Medicine; ATTEND Preventive Medicine Preventive Medicine/Occupational Environmental Medicine
DX: A41.9 Sepsis, unspecified organism (principal); G93.41 Metabolic encephalopathy; J96.00 Acute respiratory failure, unspecified whether with hypoxia or hypercapnia; N39.0 Urinary tract infection, site not specified; E87.1 Hypo-osmolality and hyponatremia; Z16.12 Extended spectrum beta lactamase (ESBL) resistance; I48.91 Unspecified atrial fibrillation; D64.9 Anemia, unspecified; K21.9 Gastro-esophageal reflux disease without esophagitis; I25.10 Atherosclerotic heart disease of native coronary artery without angina pectoris; E11.21 Type 2 diabetes mellitus with diabetic nephropathy; F03.90 Unspecified dementia, unspecified severity, without behavioral disturbance, psychotic disturbance, mood disturbance, and anxiety; J44.9 Chronic obstructive pulmonary disease, unspecified; E87.8 Other disorders of electrolyte and fluid balance, not elsewhere classified; E83.52 Hypercalcemia; E83.39 Other disorders of phosphorus metabolism; E88.09 Other disorders of plasma-protein metabolism, not elsewhere classified; R53.81 Other malaise; Z20.822 Contact with and (suspected) exposure to COVID-19; B96.20 Unspecified Escherichia coli [E. coli] as the cause of diseases classified elsewhere; I12.9 Hypertensive chronic kidney disease with stage 1 through stage 4 chronic kidney disease, or unspecified chronic kidney disease; E11.22 Type 2 diabetes mellitus with diabetic chronic kidney disease; N18.9 Chronic kidney disease, unspecified; E11.65 Type 2 diabetes mellitus with hyperglycemia; Z88.8 Allergy status to other drugs, medicaments and biological substances; Z79.899 Other long term (current) drug therapy
CPT/HCPCS: 36415; 80048; 80053; 81000; 82962; 83690; 83735; 84100; 84484; 85025; 85651-TC; 86140; 87040-TC; 87086; 93005; 96365; 96375; 99291; J0696; J1335; J1815; J2405; J7050; Q0169